=== PATIENT | male | born 1950 | race Caucasian/White ===

== ENCOUNTER 2018-08-09 10:43 | Outpatient (CLI) | payer OTHER ==
--- NOTE | 2018-08-09 10:58 | RAD ---
EXAM: 2 views of the left hip HISTORY: Left hip pain for a few weeks COMPARISON: None FINDINGS: 2 views of the left hip shows no evidence of acute fracture or dislocation. No degenerative changes are seen. No soft tissue swelling is present. IMPRESSION: No evidence of acute osseous abnormality.
== END 2018-08-09 10:44 | disposition home or self-care (01) ==
LOC: SCSRAD 10:43
PROVIDERS: ATTEND Nurse Practitioner Family
DX: M25.552 Pain in left hip (principal)

== ENCOUNTER 2018-11-28 09:59 | Outpatient (CLI) | payer OTHER ==
--- NOTE | 2018-11-28 11:18 | RAD ---
LEFT SHOULDER 3 VIEWS: Date: 11/28/18 HISTORY: Shoulder pain. FINDINGS: No evidence of fracture or dislocation. AC joint normally aligned. No significant degenerative change . IMPRESSION: Unremarkable left shoulder. POS: [facility]
--- NOTE | 2018-11-28 11:19 | RAD ---
THORACIC SPINE 2 VIEWS: Date: 11/28/18 HISTORY: Pain. FINDINGS: Thoracic vertebra maintain height and alignment. Prominent anterior and lateral osteophytes are seen with bridging osteophytes in the mid and lower thoracic spine anteriorly and laterally. No lytic or b lastic process. IMPRESSION: Prominent hypertrophic degenerative changes of thoracic spine. POS: [facility]
--- NOTE | 2018-11-28 11:24 | RAD ---
CERVICAL SPINE FOUR VIEWS: HISTORY: Neck pain. Shoulder pain. FINDINGS: Cervical vertebrae maintain height and alignment. Moderate degenerative changes. Disk space narrowing is prominent at C5-C6 and C6-C7. Anterior osteophytes are prominent at C4-C5 and C5-C6. Mild posteri or spondylosis at C4-C5 and C5-C6. IMPRESSION: Moderate degenerative change, cervical spine, as described. POS: [facility]
== END 2018-11-28 10:00 | disposition home or self-care (01) ==
LOC: SCSRAD 09:59
PROVIDERS: ATTEND Nurse Practitioner Family
DX: M25.512 Pain in left shoulder (principal); G56.92 Unspecified mononeuropathy of left upper limb; M47.814 Spondylosis without myelopathy or radiculopathy, thoracic region; M47.812 Spondylosis without myelopathy or radiculopathy, cervical region
CPT/HCPCS: 72040; 72072

== ENCOUNTER 2018-12-14 10:00 | Outpatient (CLI) | payer OTHER ==
[2018-12-14 11:09] LABS: Hemoglobin 14.7 g/dL (14.0-18.0); Mean Corpuscular HGB CONC 33.2 g/dL (32.0-36.0); Mean Corpuscular Hemoglobin 30.4 pg (27.0-31.0); Mean Corpuscular Volume 91.4 fL (78.0-98.0); Mean Platelet Volume 7.5 fL (7.4-10.4); Platelet Count 217 thou/uL (130-400); RBC Distribution Width 12.4 % (11.5-14.5); Red Blood Cell (RBC) Count 4.84 mill/uL (4.70-6.10); White Blood Cell (WBC) Count 5.5 thou/uL (4.8-10.8)
[2018-12-14 11:16] LABS: Bacteria/HPF None Seen HPF (None Seen); Bilirubin Negative (Negative); Blood, Urine Negative (Negative); Clarity Clear (Clear); Glucose, Urine (Dipstick) Normal (Negative); Leukocyte Negative Leu/uL (Negative); Nitrite Negative (Negative); Protein, Urine (Dipstick) Negative (Neg-Trace); RBC/HPF 0-3 HPF (0-3); Squamous Epithelial None Seen HPF (0-3); Urobilinogen Normal mg/dL (Less than 2); WBC/HPF 0-3 HPF (0-3)
[2018-12-14 11:21] LABS: PTT 31.1 SEC (22.9-36.1); Prothrombin Time 13.4 SEC (12.0-14.7)
[2018-12-14 11:35] LABS: Anion Gap 13 mmol/L (10-20); BUN (Urea Nitrogen) 21 mg/dL (8.4-25.7); Calc. Creatinine Clearance 0 mL/min (70-130); Carbon Dioxide 27 mmol/L (23-31); Chloride 106 mmol/L (98-107); Estimated GFR-MDRD 58; Potassium 4.5 mmol/L (3.5-5.1); Sodium 141 mmol/L (136-145)
[2018-12-14 11:36] LABS: Calcium 9.3 mg/dL (7.8-10.44); Glucose 96 mg/dL (80-115)
--- NOTE | 2018-12-17 11:38 | EKG ---
Test Reason : Blood Pressure : / mmHG Vent. Rate : 065 BPM Atrial Rate : 065 BPM P-R Int : 142 ms QRS Dur : 092 ms QT Int : 412 ms P-R-T Axes : 023 -21 005 degrees QTc Int : 428 ms Normal sinus rhythm Normal ECG No previous ECGs available Confirmed by ALLYSON MENENDEZ ([id number]) on 12/17/2018 11:37:31 AM Referred By: GINA Confirmed By:ALLYSON MENENDEZ
== END 2018-12-14 10:01 | disposition home or self-care (01) ==
LOC: LABBT 10:00
PROVIDERS: ATTEND Urology
DX: Z01.818 Encounter for other preprocedural examination (principal); N40.1 Benign prostatic hyperplasia with lower urinary tract symptoms
CPT/HCPCS: 80048; 81001; 85027; 85610; 85730; 87086; 93005; 93010

== ENCOUNTER 2018-12-21 06:40 | Day surgery (SDC) | payer OTHER ==
[2018-12-14 10:46] VITALS: BMI 32.5
[2018-12-21] MEDS ORDERED: Levofloxacin 500 mg/D5W 100 ml Premix Bag ONE (07:26)
[2018-12-21] MEDS ORDERED: Fentanyl 100 MCG/2 ML VIAL ONE (09:30)
[2018-12-21] MEDS ORDERED: PROPOFOL 60 ML ONE (09:30)
[2018-12-21] MEDS ORDERED: PROPOFOL 200 MG/20 ML VIAL ONE (10:41)
[2018-12-21] MEDS ORDERED: Phenazopyridine HCl 97.5 MG TABLET ONE ×2 (10:47→10:51)
--- NOTE | 2018-12-21 11:26 | OP ---
DATE OF PROCEDURE: 12/21/2018 SERVICE: Urology. PREOPERATIVE DIAGNOSIS: BPH with urinary symptoms. POSTOPERATIVE DIAGNOSIS: BPH with urinary symptoms. PROCEDURE PERFORMED: UroLift with 5 implants, 4 stayed in the patient. INDICATIONS FOR PROCEDURE: Mr. Blood is a 68-year-old white male with BPH and lower urinary tract symptoms. He is currently on Flomax, but does not want to remain on medical therapy. We talked about the UroLift procedure and after discussion with risks and benefits, he agreed to proceed forward. DESCRIPTION OF PROCEDURE: After identification of armband and verification of consent, the patient was brought back to the operating room with total intravenous anesthesia. He was placed in dorsal lithotomy position and prepped and draped in usual sterile fashion. After appropriate time-out, a lubricated 21-Tristanian rigid cystoscope with the UroLift obturator was passed into the urethra into the bladder. The prostate showed mild hypertrophic lobes and high bladder neck. The visual obturator switched out for the first UroLift implant. First implant was placed toward the bladder neck somewhat anterolateral for a lift type procedure on the prostate somewhat away from the bladder neck. The tissues were compressed and the safety released, and the blue trigger fired to deploy the needle. The grove trigger was then squeezed to deploy the Nitinol tab on the outside of the prostate. The UroLift was advanced forward until the white line was in the keyhole, and then the steel tab deployed on the urethral end piece, which resulted in nice compression of the anterior lateral aspect of the left side of the prostate. This was then again repeated on the right side anterolaterally. This resulted in nice tenting and opening effect of the prostatic urethra, but the bladder neck still remain somewhat closed. We, therefore, elected to place 2 additional implants on the lateral aspect of the prostate to try get a more 4D type effect on the bladder neck. The left side of the prostate initially was compressed with another UroLift, but we had a pull-through requiring a safety release to be deployed using the black emergency tool on the UroLift. After the UroLift was removed, the Nitinol tab and steel tab could both be seen inside the urethral lumen. The rigid 22-Tristanian rigid cystoscope was brought in with flexible grasper, was used to grasp the UroLift implant and removed in its entirety. The UroLift with visual obturator was then used to go back into the bladder, and the UroLift switched out for the obturator. We then switched to go to the left side for the 4D type effect and put an implant in on the patient's right side, and then again on the left which resulting in complete opening of the prostatic channel. The bladder neck remained somewhat narrow, but does appear to be easily openable when the patient voids. If the patient is still having urinary complaints, I would give consideration to TUIP in this individual that should result in nice opening of the prostatic channel. Upon completion, the prostate channel was wide open. Bleeding was noted to be mild to moderate, but nothing significant. The UroLift was removed, and an 18-Tristanian Garner catheter was placed in the patient's bladder with 10 mL of sterile water in the balloon. The patient was then awakened, taken out of positioning, and taken to Day Stay for recovery. COMPLICATIONS: None. ESTIMATED BLOOD LOSS: Minimal. RETAINED TUBES AND DRAINS: An 18-Tristanian Garner catheter, UroLift implants 5, 4 of which remained in the patient. DISPOSITION: The patient will undergo a void trial and as long as he voids and his urine is not excessively bloody, he can be discharged home and will follow up with me in approximately 1 to 2 weeks for postop check. Job ID: [id number]
== END 2018-12-21 12:42 | disposition home or self-care (01) ==
LOC: SDC 06:40
PROVIDERS: ATTEND Urology
PROC: 0T7D8DZ Dilation of Urethra with Intraluminal Device, Via Natural or Artificial Opening Endoscopic (ICD-10-PCS; principal; 2018-12-21)
DX: N40.1 Benign prostatic hyperplasia with lower urinary tract symptoms (principal); E78.5 Hyperlipidemia, unspecified
CPT/HCPCS: C1889; J1956; J2704; J3010

== ENCOUNTER 2019-02-04 15:13 | Outpatient (CLI) | payer OTHER ==
--- NOTE | 2019-02-04 15:42 | RAD ---
Exam: 3 views cervical spine HISTORY: Left shoulder pain. Finger numbness. COMPARISON: 11/2015. FINDINGS: Lateral neutral, lateral flexion and lateral extension views of cervical spine do not demonstrate any prevertebral soft tissue swelling. Moderate loss of disc space height and osteophyte formation at C5-C6 and C6-C7. There is no significant spondylolisthesis in the neutral position or upon flexion/ex tension. Note, evaluate of cervicothoracic junction is limited. Predental space is normal. Cervical spine vertebral body height is maintained. No fracture. IMPRESSION: Moderate degenerative disc disease at C5-C6 and C6-C7. No significant spondylolisthesis. No significa nt motion upon flexion or extension. Transcribed Date/Time: 02/04/2019 3:52 PM
--- NOTE | 2019-02-04 16:31 | MRI ---
Exam: MRI cervical spine without contrast HISTORY: Left shoulder pain. Finger numbness. COMPARISON: None FINDINGS: Appropriate T1 marrow signal intensity of the cervical vertebra. Vertebral body height is maintained . No fracture. No significant STIR hyperintensity to suggest vertebral body edema or ligamentous injury Spinal listhesis: 2.5 mm of retrolisthesis of C5 upon C6. Visualized brain parenchyma, cervicomedullary junction, cervical cord and the upper thoracic cord hav e a normal size and signal intensity C2-C3: Broad-based discussed by complex. No significant central canal stenosis. Right neural foramen is patent. Moderate left neural foraminal narrowing due to uncovertebral hypertrophy. C3-C4: Broad-based discussed by complex abuts the thecal sac. No significant central canal stenosis. Mild bilateral foraminal narrowing due to uncal vertebral hypertrophy C4-C5: Broad-based discussed by complex with a central protrusion. There is deformity of the thecal s ac and cervical cord. Mild central canal stenosis. No cord signal abnormality. Moderate to severe right and moderate left foraminal narrowing due to uncal vertebral hypertrophy. C5-C6: Broad-based discussed by complex with a central/right paracentral component. Deformity of the thecal sac and cervical cord. Moderate stenosis of the right aspect of the central spinal canal. No cord hyperintensity. Moderate to severe right and moderate left foraminal narrowingg. C6-C7: Broad-based discussed by complex abuts the thecal sac. Subarachnoid space is effaced. There is contact and deformity of cervical cord. Moderate central canal stenosis. Moderate to severe bilateral foraminal narrowing. T2 hyperintensity in the right neural foramen likely represent a peron eal sleeve cyst. C7-T1: Broad-based disc osteophyte complex without significant central canal stenosis or significant neural foraminal narrowing. 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 Upper thoracic spine demonstrates peroneal sleeve cysts. There is also mass effect upon the right asp ect of the thoracic cord at the T3-T4 level, incompletely evaluated. IMPRESSION: Degenerative changes of the thoracic spine as above. Transcribed Date/Time: 02/04/2019 5:58 PM
== END 2019-02-04 15:14 | disposition home or self-care (01) ==
LOC: TBSIIMAG 15:13
PROVIDERS: ATTEND Neurological Surgery
DX: M50.10 Cervical disc disorder with radiculopathy, unspecified cervical region (principal); M50.122 Cervical disc disorder at C5-C6 level with radiculopathy; M50.123 Cervical disc disorder at C6-C7 level with radiculopathy; M47.814 Spondylosis without myelopathy or radiculopathy, thoracic region
CPT/HCPCS: 72040; 72141